=== PATIENT | male | born 1980 | race Caucasian/White ===

== ENCOUNTER → 2021-05-24 | Outpatient (CLI) | payer SELFPAY | LOC: MRI 14:57 | DX: M25.362 Other instability, left knee (principal); M25.462 Effusion, left knee; S70.12XA Contusion of left thigh, initial encounter; S83.252A Bucket-handle tear of lateral meniscus, current injury, left knee, initial encounter; S83.512A Sprain of anterior cruciate ligament of left knee, initial encounter | CPT/HCPCS: 73721 ==